=== PATIENT | male | born 1985 | race Caucasian/White ===

== ENCOUNTER 2023-01-25 08:07 | Emergency (ER) | payer OTHER, SELFPAY ==
[2023-01-25 08:14] VITALS: BP 136/81; PULSE 85; RESP 14; TEMP 36.2; O2SAT 99; BMI 22.2
--- NOTE | 2023-01-25 08:31 | CM.MNRNOTE ---
can of methylene choloride and carbon dioxide sprayed pt in face at work. Pt rinsed his eyes with water for 10-15min. consulted MSDS and sought medical treatment. denies contact lenses. states he is not in pain just irritated, feels like someone threw sand in my eye. more redness and swelling of eyelid around left eye than right. right eye is red on eyelid.
--- NOTE | 2023-01-25 09:08 | ED_ITS ---
HPI - Eye Problem General Chief complaint: Eye Problems Stated complaint: sprayed w/chemical in eyes at work Time Seen by Provider: 01/25/23 09:04 Source: patient Mode of arrival: Ambulatory History of Present Illness HPI Narrative: Patient here for chemical exposure at work. Patient works for [employer]. He and another worker were sprayed in the eyes by a chemical. They were throwing trash away and a metal item punctured a can and it sprayed them in the eyes. They immediately irrigated their eyes. Patient denies any changes in vision. Has baseline problems with his left eye which is not new. Patient only has periorbital erythema bilaterally. Patient is both eyes 20/20. Right eye is 20/20. Left eye is 20/50. Patient in no discharge. No watering of the eyes. No discharge. No bleeding. Patient does not wear contact lenses or eyeglasses. Product is [employer], AntiSpatter, active ingredient is methylene chloride. Poison control is contacted. Related Data Home Medications Medication Instructions Recorded Confirmed No Known Home Medications 01/25/23 01/25/23 Allergies Allergy/AdvReac Type Severity Reaction Status Date / Time morphine [MORPHINE] Allergy Unknown Verified 01/25/23 08:17 Review of Systems Review of Systems Narrative: GENERAL: negative chills, fatigue, malaise, fever, sweats. HEENT: negative sinus pain, ear pain, sore throat, positive eye irritation RESPIRATORY: negative dyspnea, cough CARDIOVASCULAR: negative chest pain, palpitations GASTROINTESTINAL: negative nausea, vomiting, abdominal pain : negative dysuria, frequency, hematuria MUSCULOSKELETAL: negative muscle or bony pain SKIN: negative rash, skin lesions NEUROLOGIC: negative weakness, numbness ROS Unobtainable: All systems reviewed & are unremarkable except as noted in HPI and below Patient History Social History Smoking Status: Former smoker Smoking Status: Former smoker alcohol intake frequency: 0-2 drinks per day Substance Use Type: does not use Exam Narrative Exam Narrative: GENERAL: in no distress, not toxic not dyspneic HEAD: Normocephalic. EYES: Pupils equal round, no scleral erythema or injection. Conjunctiva without discharge or injection or erythema. No eye discharge bilaterally. PERRLA. EOMI. There is symmetric bilateral periorbital erythema but no vesicles slit- lamp med for endoscopy completed. No vesicles seen on cornea or sclera or conjunctiva. Litmus paper test 7.0/neutral for both eyes. ENT: Mucous membranes moist. NEURO: AOx4. SKIN: Warm and dry PSYCH: Not anxious, is cooperative Initial Vital Signs Initial Vital Signs: Vital Signs Temperature 97.1 F L 01/25/23 08:14 Pulse Rate 85 01/25/23 08:14 Respiratory Rate 14 01/25/23 08:14 Blood Pressure 136/81 01/25/23 08:14 Pulse Oximetry 99 01/25/23 08:14 Oxygen Delivery Method Room Air 01/25/23 08:14 Course Vital Signs Vital signs: Vital Signs - 8 hr 01/25/23 08:14 Temperature 97.1 F L Pulse Rate 85 Respiratory Rate 14 Blood Pressure 136/81 Pulse Oximetry 99 Oxygen Delivery Method Room Air MDM - Eye Problem MDM Narrative Medical decision making narrative: Patient here for chemical exposure at work. Patient works for [employer]. He and another worker were sprayed in the eyes by a chemical. They were throwing trash away and a metal item punctured a can and it sprayed them in the eyes. They immediately irrigated their eyes. Patient denies any changes in vision. Has baseline problems with his left eye which is not new. Patient only has periorbital erythema bilaterally. Patient is both eyes 20/20. Right eye is 20/20. Left eye is 20/50. Patient in no discharge. No watering of the eyes. No discharge. No bleeding. Patient does not wear contact lenses or eyeglasses. Product is [employer], AntiSpatter, active ingredient is methylene chloride. Poison control is contacted. After history and exam eye chart eye exam done. Patient has already irrigated his eyes. Patient in no distress MDM CC: Chemical exposure Complicating co-morbidities: None Data collected from: Patient Medical records reviewed: No previous visits here for this complaint Differential considered: Includes but not limited to contact dermatitis/conjunctivitis/corneal burn, chemical burn Exam documented above, pertinent findings include: Bilateral periorbital erythema Consultations: Poison control was contact. Supportive care. Irrigation eyes has already been done. Litmus pH paper completed and is neutral. Appropriate for follow up with Ophthalmology which is provided. Treatments: Pain is controlled. No further medications indicated Re-evaluations: Reviewed results with patient. Exam reviewed as well. Referral for Ophthalmology provided. Work note provided. L and I forms completed. Return precautions reviewed with him. He desires discharge home. Discussion: Appropriate for discharge home. Nontoxic at discharge. Referral for Ophthalmology provided. Exam and slit-lamp and fundoscopy is reassuring. Patient at baseline with visual acuity. Diagnosis: Contact dermatitis Discharge Plan Departure Patient Disposition: Home Clinical Impression: Contact dermatitis Instructions: DI for Contact Dermatitis, DI for Chemical Eye Burn Activity Restrictions/Additional Instructions: Please call provided ophthalmology office today for office re-evaluation of your eye injury. May use cool compresses to the eye for pain and swelling. May continue Tylenol or ibuprofen for pain. Return immediately if worse if any questions or concerns. L and I forms have been completed. Work note has been provided. Prescriptions: No Action No Known Home Medications Referrals: Arely Yee MD [Physician] - Harley Bonner MD [Primary Care Provider] - Stand Alone Forms: Patient Portal/API, Work Release Note
--- NOTE | 2023-01-25 09:13 | PC.NURSE ---
Poison control contacted: Discussed case. Direct contact can cause ojeda to cornea & skin. Eyes should be checked for injury / ojeda. No further treatment orders.
== END 2023-01-25 09:48 | disposition home or self-care (01) ==
PROVIDERS: Emergency Provider Emergency Medicine; PCP Internal Medicine
DX: T53.4X Toxic effects of dichloromethane (principal); L25.3 Unspecified contact dermatitis due to other chemical products; Y99.0 Civilian activity done for income or pay
CPT/HCPCS: 99281